=== PATIENT | male | born 1970 | race Caucasian/White ===

== ENCOUNTER 2019-06-05 02:37 | Emergency (ER) | payer BC ==
[~2019-06-05] VITALS: Ht 182.9 cm; Wt 120.7 kg
[2019-06-05] MEDS ORDERED: ASPIRIN 81 MG CHEW TAB PO ONE (03:30)
[2019-06-05 03:38] LABS: BASOPHILS # (AUTO) 0.1 (0.0-0.1); BASOPHILS % 1.3 % (0.0-1.0); EOSINOPHILS # (AUTO) 0.1 (0.0-0.4); EOSINOPHILS % 2.6 % (0.0-6.0); HEMATOCRIT 45.6 % (38.2-49.6); LYMPHOCYTES # (AUTO) 1.4 (1.0-3.2); LYMPHOCYTES % 26.6 % (18.0-39.1); MEAN CORPUSCULAR HEMOGLOBIN 32.4 pg (28-32); MEAN CORPUSCULAR HGB CONC 35.1 g/dL (31-35); MEAN CORPUSCULAR VOLUME 92.3 fL (81-99); MONOCYTES # (AUTO) 0.5 (0.2-0.8); MONOCYTES % 8.5 % (4.4-11.3); NEUTROPHILS # (AUTO) 3.2 (2.1-6.9); NEUTROPHILS % 60.6 % (38.7-80.0); PLATELET COUNT 273 x10e3/uL (140-360); RED BLOOD COUNT 4.94 x10e6/uL (4.3-5.7); RED CELL DISTRIBUTION WIDTH 12.4 % (11.7-14.4)
[2019-06-05 03:49] LABS: ALANINE AMINOTRANSFERASE 56 IU/L (0-55); ALBUMIN 4.3 g/dL (3.5-5.0); ALKALINE PHOSPHATASE 75 IU/L (40-150); BLOOD UREA NITROGEN 11 mg/dL (7-26); BUN/CREATININE RATIO 9 (6-25); CALCIUM 9.4 mg/dL (8.4-10.2); CARBON DIOXIDE 24 mmol/L (22-29); CHLORIDE 106 mmol/L (98-107); CREATININE, SERUM 1.27 mg/dL (0.72-1.25); EST GLOMERULAR FILTRATION RATE 60 ML/MIN (60-); GLUCOSE 143 mg/dL (74-118); SODIUM 140 mmol/L (136-145)
--- NOTE | 2019-06-05 03:57 | Diagnostic Imaging Report ---
Examination: Single AP view of the chest. COMPARISON: None. INDICATION: Chest pain DISCUSSION: The lungs are well inflated. No focal consolidation, pleural effusion, or pneumothorax. Cardiomediastinal contour and pulmonary vasculature are within normal limits when accounting for AP technique. No acute osseous abnormalities. IMPRESSION: 1. No acute cardiopulmonary abnormalities. Signed by: Dr. Myron Mo M.D. on 06/05/2019 3:55 AM
[2019-06-05 04:03] LABS: ALBUMIN/GLOBULIN RATIO 1.3 (0.8-2.0); CREATINE KINASE 100 IU/L (30-200)
== END 2019-06-05 05:12 | disposition home or self-care (01) ==
LOC: ER 02:37
DX: R07.89 Other chest pain (principal)
CPT/HCPCS: 36415; 71045; 80053; 82550; 82553; 84484; 85025; 93005; 99283

== ENCOUNTER 2019-08-04 20:01 | Observation (INO) | payer BC ==
[~2019-08-04] VITALS: Ht 182.9 cm; Wt 120.7 kg
--- OUTSIDE RECORDS SUMMARY | 2019-08-04 20:04 | XMS REPORT ---
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 Allergies, Adverse Reactions, Alerts This patient has no known allergies or adverse reactions. Medications This patient has no known medications. Encounters Start Date/Time End Date/Time Encounter Type Admission Type [facility] Care Department Encounter ID 2019-06-05 02:37:00 2019-06-05 05:12:00 Departed Emergency Room 1 COURTNEY ESCALANTE [facility] [id number] Results Test Description Test Time Test Comments Text Results Atomic Results Result Comments Total Protein 2019-06-05 04:03:00 Total Protein (test code = 2885-2) 7.5 6.5-8.1 [id number] 04:03:00* Test Item Value Reference Range Comments Globulin (test code = 28006-3) 3.2 2.3-3.5 Albumin/Globulin Qfwvj0663-77-92 04:03:00* Test Item Value Reference Range Comments Albumin/Globulin Ratio (test code = 1759-0) 1.3 0.8- 2.0 Creatine Mxcwgq1982-49-96 04:03:00* Test Item Value Reference Range Comments Creatine Kinase (test code = 2157-6) 100 30-200 Creatine Kinase [id number] 03:57:00* Test Item Value Reference Range Comments Creatine Kinase MB (test code = 05692-0) 0.50 0-5.0 Troponin [id number] 03:57:00* Test Item Value Reference Range Comments Troponin I (test code = GXK0582) < 0.001 0-0.300 CHEST SINGLE (PORTABLE)2019-06-05 03:53:00 [place] [address] Patient Name: MARTY ELAINE MR #: [id number] : 1970 Age/Sex: 49/M Req #: [id number] Adm Physician: Ordered by: COURTNEY ESCALANTE DO Report #: [id number] Location: ER Room/Bed: Procedure: [id number] 4 DX/CHEST SINGLE (PORTABLE) Exam Date: 06/05/19 Exeufemia m Time: 033 REPORT STATUS: Signed Examination: Single AP view of the chest. COMPARISON: None. INDICAT ION: Chest pain DISCUSSION: The lungs are well inflated. No foc al consolidation, pleural effusion, or pneumothorax. Cardiomediastinal c ontour and pulmonary vasculature are within normal limits when accounting for AP technique. No acute osseous abnormalities. IMPRESSION: 1. No acute cardiopulmonary abnormalities. Signed by: Dr. Abel Ceja M.D. on 06/05/2019 3:55 AM Dictated By: ABEL CEJA MD 4 Transcribed By: FATUMA on 06/05/19354 COPY TO: COURTNEY ESCALANTE DO Sodium Zaqcs6472-91-16 03:49:00* Test Item Value Reference Range Comments Sodium Level (test code = 2951-2) 140 136-145 Potassium Znwro4953-58-80 03:49:00* Test Item Value Reference Range Comments Potassium Level (test code = 2823-3) 4.0 3.5-5.1 Chloride Biocu3703-76-84 03:49:00* Test Item Value Reference Range Comments Chloride Level (test code = 2075-0) 106 98-107 Carbon Dioxide Ndezt5155-53-40 03:49:00* Test Item Value Reference Range Comments Carbon Dioxide Level (test code = 2028-9) 24 22-29 Anion Bvo5330-55-65 03:49:00* Test Item Value Reference Range Comments Anion Gap (test code = 56174-9) 14.0 8-16 Blood Urea Udmuzsrh5194-81-60 03:49:00* Test Item Value Reference Range Comments Blood Urea Nitrogen (test code = 3094-0) 11 7-26 Vafkgtmkju3210-98-60 03:49:00* Test Item Value Reference Range Comments Creatinine (test code = 2160-0) 1.27 0.72-1.25 BUN/Creatinine Udiep1301-60-25 03:49:00* Test Item Value Reference Range Comments BUN/Creatinine Ratio (test code = 3097-3) 9 6-25 Estimat Glomerular Filtration Qoqh7687-71-28 03:49:00* Test Item Value Reference Range Comments Estimat Glomerular Filtration Rate (test code = 352889185) 60 >60 Ranges were taken from the National Kidney Disease Education Program and the [facility] literature.Reference ranges:60 or greater: Ngeibm85-87 ( for 3 consecutive months): Chronic kidney disease 15 or less: Kidney failure Glucose Pqtxp3901-98-94 03:49:00* Test Item Value Reference Range Comments Glucose Level (test code = NMP1924) 143 74-118 Calcium Mzrte5510-75-74 03:49:00* Test Item Value Reference Range Comments Calcium Level (test code = 85056-3) 9.4 8.4-10.2 Total Jidjplftu6056-40-27 03:49:00* Test Item Value Reference Range Comments Total Bilirubin (test code = 1975-2) 0.7 0.2-1.2 Aspartate Amino Transf (AST/SGOT)2019-06-05 03:49:00* Test Item Value Reference Range Comments Aspartate Amino Transf (AST/SGOT) (test code = Aspartate Amino Transf (AST/SGOT)) 36 5-34 Alanine Aminotransferase (ALT/SGPT)2019-06-05 03:49:00* Test Item Value Reference Range Comments Alanine Aminotransferase (ALT/SGPT) (test code = 1742-6) 56 0-55 Ejvvbot3022-65-44 03:49:00* Test Item Value Reference Range Comments Albumin (test code = 1751-7) 4.3 3.5-5.0 Alkaline Xkicojategp5185-37-07 03:49:00* Test Item Value Reference Range Comments Alkaline Phosphatase (test code = 6768-6) 75 40-150 White Blood Rxuho8954-89-60 03:48:00* Test Item Value Reference Range Comments White Blood Count (test code = 6690-2) 5.31 4.8-10.8 Red Blood Emqca6949-65-55 03:48:00* Test Item Value Reference Range Comments Red Blood Count (test code = 789-8) 4.94 4.3-5.7 Keqqhadgki8997-79-38 03:48:00* Test Item Value Reference Range Comments Hemoglobin (test code = 55825-7) 16.0 14.0-18.0 Opbmbgfdwt4820-40-19 03:48:00* Test Item Value Reference Range Comments Hematocrit (test code = 4544-3) 45.6 38.2-49.6 Mean Corpuscular Sfikqg7334-26-67 03:48:00* Test Item Value Reference Range Comments Mean Corpuscular Volume (test code = 787-2) 92.3 81-9 9 Mean Corpuscular Fjmhixnseb9995-92-98 03:48:00* Test Item Value Reference Range Comments Mean Corpuscular Hemoglobin (test code = 785-6) 32.4 28-32 Mean Corpuscular Hemoglobin Ddfphbk3908-71-98 03:48:00* Test Item Value Reference Range Comments Mean Corpuscular Hemoglobin Concent (test code = 786-4) 35.1 31-35 Red Cell Distribution Eurmg3704-64-90 03:48:00* Test Item Value Reference Range Comments Red Cell Distribution Width (test code = 23898-3) 12.4 11.7-14.4 Platelet Avqal7916-33-24 03:48:00* Test Item Value Reference Range Comments Platelet Count (test code = 777-3) 273 140-360 Neutrophils (%) (Auto)2019-06-05 03:48:00* Test Item Value Reference Range Comments Neutrophils (%) (Auto) (test code = 40897-9) 60.6 38. 7-80.0 Lymphocytes (%) (Auto)2019-06-05 03:48:00* Test Item Value Reference Range Comments Lymphocytes (%) (Auto) (test code = 736-9) 26.6 18.0- 39.1 Monocytes (%) (Auto)2019-06-05 03:48:00* Test Item Value Reference Range Comments Monocytes (%) (Auto) (test code = 5905-5) 8.5 4.4-11 .3 Eosinophils (%) (Auto)2019-06-05 03:48:00* Test Item Value Reference Range Comments Eosinophils (%) (Auto) (test code = 713-8) 2.6 0.0-6 .0 Basophils (%) (Auto)2019-06-05 03:48:00* Test Item Value Reference Range Comments Basophils (%) (Auto) (test code = 706-2) 1.3 0.0-1.0 IM GRANULOCYTES %2019-06-05 03:48:00* Test Item Value Reference Range Comments IM GRANULOCYTES % (test code = IM GRANULOCYTES %) 0.4 0.0-1.0 Neutrophils # (Auto)2019-06-05 03:48:00* Test Item Value Reference Range Comments Neutrophils # (Auto) (test code = 751-8) 3.2 2.1-6.9 Lymphocytes # (Auto)2019-06-05 03:48:00* Test Item Value Reference Range Comments Lymphocytes # (Auto) (test code = 68708-1) 1.4 1.0-3 .2 Monocytes # (Auto)2019-06-05 03:48:00* Test Item Value Reference Range Comments Monocytes # (Auto) (test code = 742-7) 0.5 0.2-0.8 Eosinophils # (Auto)2019-06-05 03:48:00* Test Item Value Reference Range Comments Eosinophils # (Auto) (test code = 711-2) 0.1 0.0-0.4 Basophils # (Auto)2019-06-05 03:48:00* Test Item Value Reference Range Comments Basophils # (Auto) (test code = 704-7) 0.1 0.0-0.1 Absolute Immature Granulocyte (wjjn8239-70-84 03:48:00* Test Item Value Reference Range Comments Absolute Immature Granulocyte (auto (valerie t code = Absolute Immature Granulocyte (auto) 0.02 0-0.1
[2019-08-04] MEDS ORDERED: ASPIRIN 81 MG CHEW TAB PO ONE ×2 (20:15→21:00)
[2019-08-04] MEDS ORDERED: NITROGLYCERIN 2% OINT 1 GM PKT TOP ONE (20:15)
[2019-08-04 20:23] LABS: BASOPHILS # (AUTO) 0.1 (0.0-0.1); BASOPHILS % 1.2 % (0.0-1.0); EOSINOPHILS # (AUTO) 0.2 (0.0-0.4); EOSINOPHILS % 2.4 % (0.0-6.0); HEMATOCRIT 46.3 % (38.2-49.6); HEMOGLOBIN 16.2 g/dL (14.0-18.0); MEAN CORPUSCULAR HEMOGLOBIN 32.6 pg (28-32); MEAN CORPUSCULAR VOLUME 93.2 fL (81-99); MONOCYTES # (AUTO) 0.7 (0.2-0.8); MONOCYTES % 9.8 % (4.4-11.3); NEUTROPHILS # (AUTO) 3.7 (2.1-6.9); NEUTROPHILS % 55.8 % (38.7-80.0); PLATELET COUNT 269 x10e3/uL (140-360); RED BLOOD COUNT 4.97 x10e6/uL (4.3-5.7); RED CELL DISTRIBUTION WIDTH 12.6 % (11.7-14.4)
[2019-08-04 20:32] LABS: INR 0.96; PROTHROMBIN TIME 13.3 seconds (11.9-14.5)
[2019-08-04 20:33] LABS: PARTIAL THROMBOPLASTIN TIME 27.1 seconds (23.8-35.5)
[2019-08-04 20:42] LABS: ALANINE AMINOTRANSFERASE 42 IU/L (0-55); ALBUMIN 4.4 g/dL (3.5-5.0); ALBUMIN/GLOBULIN RATIO 1.5 (0.8-2.0); ALKALINE PHOSPHATASE 73 IU/L (40-150); ANION GAP 13.1 mmol/L (8-16); BLOOD UREA NITROGEN 11 mg/dL (7-26); BUN/CREATININE RATIO 9 (6-25); CALCIUM 9.6 mg/dL (8.4-10.2); CARBON DIOXIDE 26 mmol/L (22-29); CHLORIDE 105 mmol/L (98-107); CREATINE KINASE 82 IU/L (30-200); CREATININE, SERUM 1.27 mg/dL (0.72-1.25); EST GLOMERULAR FILTRATION RATE 60 ML/MIN (60-); GLUCOSE 91 mg/dL (74-118); POTASSIUM 4.1 mmol/L (3.5-5.1); SODIUM 140 mmol/L (136-145)
--- NOTE | 2019-08-04 20:45 | Diagnostic Imaging Report ---
EXAMINATION: CHEST SINGLE (PORTABLE) INDICATION: COMPARISON: Chest x-ray dated 06/05/2019. FINDINGS: AP view TUBES and LINES: None. LUNGS/PLEURA: Lungs are well inflated. There are bilateral interstitial opacities, consistent with pulmonary edema.. There is no pleural effusion or pneumothorax. HEART AND MEDIASTINUM: Cardiac size is enlarged, unchanged. BONES AND SOFT TISSUES: No acute osseous lesion. Soft tissues are unremarkable. UPPER ABDOMEN: No free air under the diaphragm. IMPRESSION: Cardiomegaly with pulmonary edema. Signed by: Jamar Phillips MD on 08/04/2019 8:42 PM
[2019-08-04] MEDS ORDERED: ONDANSETRON HCL INJ 2MG/ML 2ML 2 MG/ML VIAL IV PRN (21:00)
[2019-08-04] MEDS ORDERED: MORPHINE SULFATE INJ 4 MG/ML INJ 1ML IV PRN (21:00)
[2019-08-04] MEDS ORDERED: ASPIR 8181 MG PO (21:52)
[2019-08-04] MEDS ORDERED: FAMOTIDINE20 MG PO (21:52)
[2019-08-04] MEDS ORDERED: EFFIENT10 MG PO (21:52)
[2019-08-04] MEDS ORDERED: ATORVASTATIN CA10 MG PO (21:52)
[2019-08-04] MEDS ORDERED: PROTONIX20 MG PO (21:52)
--- NOTE | 2019-08-04 22:50 | NUR ---
RECEIVED THE PATIENT FROM ER IN A STRETCHER WITH C/O CHEST PAIN.AAOX3.SELF AMBULATES.ADMISSION ASSESSMENT DONE.NO RESP.DISTRESS.ORIENTED TO THE UNIT.BED LOCKED AND IN LOWEST POSITION.PHONE AND CALL LIGHT WITHIN REACH.INSTRUCTED TO CALL FOR ASSISTANCE NEEDED.BRUISE NOTED TO LEFT FOR ARM.
[2019-08-04 23:00] VITALS: BP 142/88
[2019-08-04 23:10] VITALS: BP 142/88
[2019-08-04 23:50] VITALS: BP 142/88
[2019-08-05] MEDS ORDERED: ACETAMINOPHEN 325 MG TAB PO PRN
[2019-08-05] MEDS ORDERED: HYDRALAZINE HCL 20 MG/ML VIAL IV PRN
--- NOTE | 2019-08-05 00:04 | NUR ---
NO CHEST PAIN VOICED.STABLE CONDITION.
[2019-08-05 04:00] VITALS: BP 115/77
--- NOTE | 2019-08-05 04:47 | NUR ---
Urine sent to the lab.
[2019-08-05 06:07] LABS: BASOPHILS # (AUTO) 0.1 (0.0-0.1); EOSINOPHILS # (AUTO) 0.2 (0.0-0.4); EOSINOPHILS % 3.6 % (0.0-6.0); HEMATOCRIT 44.2 % (38.2-49.6); HEMOGLOBIN 15.5 g/dL (14.0-18.0); LYMPHOCYTES # (AUTO) 1.9 (1.0-3.2); LYMPHOCYTES % 32.5 % (18.0-39.1); MEAN CORPUSCULAR HEMOGLOBIN 32.8 pg (28-32); MEAN CORPUSCULAR HGB CONC 35.1 g/dL (31-35); MEAN CORPUSCULAR VOLUME 93.4 fL (81-99); MONOCYTES # (AUTO) 0.6 (0.2-0.8); MONOCYTES % 10.9 % (4.4-11.3); NEUTROPHILS % 51.5 % (38.7-80.0); PLATELET COUNT 259 x10e3/uL (140-360); RED BLOOD COUNT 4.73 x10e6/uL (4.3-5.7); RED CELL DISTRIBUTION WIDTH 12.5 % (11.7-14.4)
[2019-08-05 06:28] LABS: BACTERIA,URINE FEW /HPF; BILIRUBIN,URINE NEGATIVE (NEGATIVE); CLARITY,URINE CLEAR (CLEAR); COLOR,URINE YELLOW (YELLOW); EPITHELIAL CELLS,URINE FEW /LPF; KETONES,URINE NEGATIVE (NEGATIVE); LEUKOCYTE ESTERASE ,URINE NEGATIVE (NEGATIVE); NITRITE,URINE NEGATIVE (NEGATIVE); PROTEIN,URINE DIPSTICK NEGATIVE (NEGATIVE); RBC,URINE 0-5 /HPF (0-5); URINE UROBILINOGEN 0.2 mg/dL (0.2 - 1); WBC,URINE (MAN) 0-5 /HPF (0-5)
[2019-08-05 06:36] LABS: CHOL/HDL RATIO 3.4 (3.9-4.7); MAGNESIUM 2.1 MG/DL (1.3-2.1); PHOSPHORUS 3.4 MG/DL (2.3-4.7)
[2019-08-05 06:39] LABS: ALANINE AMINOTRANSFERASE 36 IU/L (0-55); ALBUMIN 3.9 g/dL (3.5-5.0); ALBUMIN/GLOBULIN RATIO 1.3 (0.8-2.0); ALKALINE PHOSPHATASE 72 IU/L (40-150); BLOOD UREA NITROGEN 10 mg/dL (7-26); BUN/CREATININE RATIO 9 (6-25); CALCIUM 9.3 mg/dL (8.4-10.2); CARBON DIOXIDE 29 mmol/L (22-29); CHLORIDE 106 mmol/L (98-107); CREATINE KINASE 74 IU/L (30-200); CREATININE, SERUM 1.11 mg/dL (0.72-1.25); EST GLOMERULAR FILTRATION RATE > 60 ML/MIN (60-); GLUCOSE 83 mg/dL (74-118); SODIUM 137 mmol/L (136-145)
--- NOTE | 2019-08-05 07:05 | NUR ---
BED SIDE SHIFT REPORT GIVEN TO ONCOMING RN.STABLE CONDITION.
--- NOTE | 2019-08-05 07:05 | NUR ---
Received patient lying in bed with eyes open. Respiration even and unlabored without SOB. Denies chest pain at this time. Call light in reach.
[2019-08-05 08:56] VITALS: BP 127/83
[2019-08-05] MEDS ORDERED: PANTOPRAZOLE SOD 40 MG TABEC PO SCH (09:00)
[2019-08-05] MEDS ORDERED: ASPIRIN 81 MG CHEW TAB PO SCH (09:00)
[2019-08-05] MEDS ORDERED: FAMOTIDINE 20 MG TAB PO SCH (09:00)
[2019-08-05 09:51] VITALS: BP 127/83
[2019-08-05 12:05] VITALS: BP 119/80
[2019-08-05] MEDS ORDERED: PRASUGREL 10 MG TAB PO SCH (14:00)
[2019-08-05 14:05] LABS: CREATINE KINASE 77 IU/L (30-200)
[2019-08-05 17:36] VITALS: BP 134/90
--- NOTE | 2019-08-05 18:30 | NUR ---
Patient is to D/C to home as ordered. Discharge education given with discharge packet. Verbalized understanding. PIV to right AC discontinued with catheter tip intact, occlusive dressing placed , no bleeding noted.
--- NOTE | 2019-08-05 18:37 | NUR ---
Patient is transported via wheelchair to private vehicle. All personal belongings are taken.
--- NOTE | 2019-08-05 19:20 | History and Physical ---
This is a history and physical, short-stay, and discharge summary. PRIMARY CARE PHYSICIAN: Joao Mcgarry MD. CHIEF COMPLAINT: Chest pain. HISTORY OF PRESENT ILLNESS: This is a 49-year-old male who had a left heart catheterization on , 08/03/2019, with right wrist approach, had a stent placed in the left anterior descending. On Wednesday, he began feeling a discomfort in his chest and having cold sweats. He called Dr. Lowell Mcgarry and Dr. Mcgarry stated that if he did not feel better, then go to the ER. The patient called 911, left via emergency medical services and was given aspirin 81 mg and two doses of nitroglycerin spray en route. A 12-lead EKG was completed and when he got to the emergency department, he was seen by Dr. White, emergency room physician and a chest x-ray was done. He later had an echocardiogram completed on Wednesday. His chest pain was rated at 3-1/2 out of 10 on a 0-10 pain scale with chest heaviness and without palpitations. PAST MEDICAL HISTORY: He denies any past medical history. PAST SURGICAL HISTORY: None. FAMILY HISTORY: On his both his mother and father side coronary artery disease. His paternal grandfather from a heart attack. SOCIAL HISTORY: Denies tobacco or illicit drug use. He drinks alcohol socially. ALLERGIES: NO KNOWN ALLERGIES. HOME MEDICATIONS: Include aspirin, atorvastatin, Pepcid, Protonix and prasugrel. REVIEW OF SYSTEMS: CONSTITUTIONAL: Denies any significant weight loss or weight gain. Currently, denies any fever or cold sweats. EYES: He wears glasses. EAR, NOSE, AND THROAT: Denies complaints. RESPIRATORY: No shortness of breath, cough, or phlegm. GENITOURINARY: No difficulty initiating a stream or dysuria. PSYCHIATRIC: No psychiatric history. INTEGUMENTARY: No rash or lesions. CARDIOVASCULAR: Currently, no chest pain or palpitations. GASTROINTESTINAL: He has had flatus. He is eating meals well. Last bowel movement was yesterday. MUSCULOSKELETAL: Denies muscle pain or joint pain. NEUROLOGIC: No headache or dizziness. ENDOCRINE: Denies history of diabetes. HEMATOLOGIC: No complaints of bleeding anywhere. OBJECTIVE: VITAL SIGNS: Temperature 97.5, T-max 98.6, heart rate 64, blood pressure 115/77, respiratory rate 17, oxygen saturation 98%. Height 6 feet 0 inch, weight 266 pounds. BMI 36.07. GENERAL: The patient is lying supine in bed. No acute distress. LUNGS: Clear to auscultation. Respiratory pattern even and labored. HEENT: Extraocular eye movements intact. NECK: Supple. No lymphadenopathy, thyromegaly, or JVD. CARDIOVASCULAR: Regular rate and rhythm. No murmur. ABDOMEN: Bowel sounds positive. Soft, nontender. EXTREMITIES: Without pitting edema. No clubbing, cyanosis, or signs of DVT. NEUROLOGICAL: GCS 15. Nonfocal. INTEGUMENTARY: He has a hematoma on the left forearm that is approximately 5 x 3 cm cause from attempts at IV [facility]. LABORATORY DATA: August 03, WBC 6.63, hemoglobin 16.2, hematocrit 46.3, platelet count 269. Today, CBC also within normal limits. PT 13.3, INR 0.96, PTT 27.1. Sodium 140, potassium 4.1, chloride 105, CO2 26, BUN 11, creatinine 1.27. Estimated GFR 60, glucose 91, calcium 9.6, total bilirubin 0.7, AST 26, ALT 42, alkaline phosphatase 73, creatine kinase 82. CK-MB 0.7. Troponin I less than 0.001. Total protein 7.4, albumin 4.4. On August 04, creatine kinase 74 then 77. CK-MB 0.7 twice. Troponin I less than 0.001 twice. B-type nitrate peptide less than 10. Today, sodium 137, potassium 4.0, chloride 106, CO2 29, anion gap 6, BUN 10, creatinine 1.11. Estimated GFR greater than 60, glucose 83, calcium 9.3, phosphorus 3.4, magnesium 2.1, total bilirubin 0.7, AST 22, ALT 36, alkaline phosphatase 72. Total protein 6.8, albumin 3.9, triglycerides 101, cholesterol 104, LDL 53, HDL 31, TSH 3.83. Urinalysis was negative. Final results from urine culture are pending. IMAGING DATA: Chest x-ray on August 03, showed cardiomegaly with pulmonary edema. On August 03, echocardiogram showed ejection fraction of 60%. A 12-lead EKG with normal sinus rhythm with heart rate 61. Also, telemetry today showed sinus bradycardia with a heart rate of 52. ASSESSMENT AND PLAN: 1. Chest pain. 2. Coronary artery disease, status post PCI on 08/03/[address] Mcgarry with stent placed in the LAD. 3. Renal insufficiency. 4. Obesity with BMI of 36.07. The patient was seen by Dr. Mcgarry with Cardiology today. States the patient is okay to discharge from his standpoint. Subjectively, the patient is doing much better. Denies any chest pain or cold sweats. He is to continue cardiac diet. He can return to work tomorrow on August 05. 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 No heavy lifting. No strenuous activity or exercise. No repetitive movements with the right wrist. Follow up with Dr. Mcgarry of Cardiology as directed. Follow up with PCP Dr. Sam Mcgarry in 1 to 2 weeks. Continue current cardiac medications. Dictated by Osmin Mcginnis NP Luke Seth MD HWP/MODL /[id number]
[2019-08-05] MEDS ORDERED: ATORVASTATIN 10 MG TAB PO SCH (21:00)
== END 2019-08-05 18:37 | disposition home or self-care (01) ==
LOC: ER 20:01 → ERHOLD 21:56 → MED/SURG2 22:57
PROVIDERS: ADMIT Internal Medicine; ATTEND Internal Medicine
DX: I25.110 Atherosclerotic heart disease of native coronary artery with unstable angina pectoris (principal); E66.9 Obesity, unspecified; Z68.36 Body mass index [BMI] 36.0-36.9, adult; I25.10 Atherosclerotic heart disease of native coronary artery without angina pectoris; Z95.5 Presence of coronary angioplasty implant and graft; N28.9 Disorder of kidney and ureter, unspecified
CPT/HCPCS: 36415 ×2; 71045; 80053 ×2; 80061; 81001; 82550 ×2; 82553 ×2; 83735; 83880; 84100; 84443; 84484 ×2; 85025 ×2; 85610; 85730; 87086; 93005; 93306; 99284; G0378 ×2; S0164

== ENCOUNTER → 2022-07-13 | Outpatient (CLI) | payer BC ==
[~2022-07-13] MED LIST: ASPIR 8181 MG PO; ATORVASTATIN CA10 MG PO; EFFIENT10 MG PO; FAMOTIDINE20 MG PO; PROTONIX20 MG PO
== END ==
LOC: NM 12:26
PROVIDERS: ATTEND Nurse Practitioner
DX: K76.0 Fatty (change of) liver, not elsewhere classified (principal); K82.8 Other specified diseases of gallbladder; R74.8 Abnormal levels of other serum enzymes
CPT/HCPCS: 78227; A9537